=== PATIENT | female | born 1980 | race Caucasian/White ===

== ENCOUNTER → 2016-04-04 | Outpatient (CLI) | payer BC ==
[~2016-04-04] MED LIST: CLARITIN,ALAVAR10 MG PO; LEVO-T50 MCG PO; NOHOMEMEDS; PRENATAL TABLE1 EAC3 PO; VICODIN 5-3001 EACH PO
[2016-04-04 09:18] VITALS: BP 114/75
== END | disposition home or self-care (01) ==
LOC: IVINF 09:00
DX: O36.0920 Maternal care for other rhesus isoimmunization, second trimester, not applicable or unspecified (principal); Z3A.24 24 weeks gestation of pregnancy
CPT/HCPCS: 96372; J2790

== ENCOUNTER 2016-06-20 07:43 | Inpatient (IN) | payer BC ==
[2016-06-20] VITALS (8 sets, daily range): BP systolic 123–148; BP diastolic 58–89
[~2016-06-20] VITALS: Ht 170.2 cm; Wt 118.3 kg
[~2016-06-20 07:43] MED LIST changes: +DIABETA1.25 MG PO; +TUMS500 MG PO; +ZYRTEC10 M3 PO
[2016-06-20 08:40] LABS: ANION GAP 11 MEQ/L (2-14); CHLORIDE 107 MEQ/L (99-109); POTASSIUM 4.4 MEQ/L (3.7-5.4); SAMPLE HEMOLYSIS CHECK 0; SAMPLE ICTERIC CHECK 0; SAMPLE LIPEMIA CHECK 0; SODIUM 140 MEQ/L (136-147)
[2016-06-20 08:45] LABS: GFR ESTIMATE (CALCULATED) > 59 mL/min/; GLUCOSE 81 mg/dL (70-99); UREA NITROGEN (BUN) 14 mg/dL (9-23)
[2016-06-20] MEDS ORDERED: ENDOCET 5-3251 EACH PO (10:20)
[2016-06-20] MEDS ORDERED: IBUPROFEN800 MG PO (10:20)
[2016-06-20 11:03] LABS: POINT-OF-CARE METER ID UU13113675
[2016-06-20 17:41] LABS: POINT-OF-CARE METER ID UU14188576
[2016-06-21 03:01] VITALS: BP 139/69
[2016-06-21 06:47] LABS: POINT-OF-CARE METER ID UU14188576
[2016-06-21 07:25] LABS: EOSINOPHIL (%) 0.3 % (0-5); HEMATOCRIT 31.7 % (36.0-46.0); IMMATURE GRANULOCYTE (%) 0.5 % (0.0-0.7); IMMATURE GRANULOCYTE COUNT 0.1 K/uL; INSTRUMENT ABS NEUTROPHIL CT 9.1 K/uL; LYMPHOCYTE COUNT 3.2 K/uL (1.0-2.8); MCHC 33.4 G/DL (30.0-36.0); MCV 89.8 FL (83-99); MEAN PLAT.VOLUME 11.7 uM^3 (9.5-12.4); MONOCYTE COUNT 0.7 K/uL (0-0.8); NEUTROPHIL (%) 69.8 % (45-76); NEUTROPHIL COUNT 9.1 K/uL (1.8-6.4); PLATELET COUNT 151 K/uL (156-360); RBC DIS.WIDTH-CV 13.5 % (11.8-14.6); RBC DIS.WIDTH-SD 44.2 % (39-53)
[2016-06-21 07:29] LABS: RED BLOOD COUNT 3.53 M/uL (3.80-5.20)
[2016-06-21 09:14] VITALS: BP 131/80
[2016-06-21 10:39] VITALS: BP 136/81
[2016-06-21 15:25] VITALS: BP 136/71
[2016-06-21 20:00] VITALS: BP 151/81
[2016-06-21 23:16] VITALS: BP 138/71
[2016-06-22 03:30] VITALS: BP 139/92
[2016-06-22 07:15] LABS: POINT-OF-CARE METER ID UU13113692
[2016-06-22 07:28] VITALS: BP 139/89
[2016-06-22 15:17] VITALS: BP 138/69
[2016-06-22 22:46] VITALS: BP 136/60
[2016-06-23 07:19] VITALS: BP 135/72
== END 2016-06-23 14:36 | disposition home or self-care (01) | DRG 766 ==
LOC: 2WEST 07:43 → 2SOUTH 09:25 → 2WEST 06-23 14:36
PROVIDERS: Obstetrics & Gynecology
PROC: 10D00Z1 Extraction of Products of Conception, Low, Open Approach (ICD-10-PCS; principal; 2016-06-20)
DX: O64.8XX0 Obstructed labor due to other malposition and malpresentation, not applicable or unspecified (principal); O36.0930 Maternal care for other rhesus isoimmunization, third trimester, not applicable or unspecified; Z3A.39 39 weeks gestation of pregnancy; Z37.0 Single live birth; E66.01 Morbid (severe) obesity due to excess calories; O24.425 Gestational diabetes mellitus in childbirth, controlled by oral hypoglycemic drugs; O09.523 Supervision of elderly multigravida, third trimester; O99.824 Streptococcus B carrier state complicating childbirth; O99.284 Endocrine, nutritional and metabolic diseases complicating childbirth; E03.9 Hypothyroidism, unspecified; Z68.33 Body mass index [BMI] 33.0-33.9, adult; E88.09 Other disorders of plasma-protein metabolism, not elsewhere classified; O69.81X0 Labor and delivery complicated by cord around neck, without compression, not applicable or unspecified
CPT/HCPCS: 36415; 80048; 82948; 85025; 86870; 86900; 86901; 86920; 86999; 93005; J0690; J1100; J2274; J2405; J7120

== ENCOUNTER → 2017-02-26 | Outpatient (CLI) | payer BC ==
[~2017-02-26] VITALS: Ht 170.2 cm; Wt 109.0 kg
[~2017-02-26] MED LIST changes: +ENDOCET 5-3251 EACH PO; +IBUPROFEN800 MG PO
[2017-02-26 11:30] VITALS: BP 135/82
== END | disposition home or self-care (01) ==
LOC: IVINF 11:00
DX: Z31.82 Encounter for Rh incompatibility status (principal); Z3A.28 28 weeks gestation of pregnancy; Z67.41 Type O blood, Rh negative
CPT/HCPCS: 96372; J2790

== ENCOUNTER → 2017-06-11 | Outpatient (CLI) | payer BC ==
[~2017-06-11] VITALS: Ht 170.2 cm; Wt 112.0 kg
[2017-06-11 09:28] VITALS: BP 134/65
== END | disposition home or self-care (01) ==
LOC: IVINF 09:20
DX: Z31.82 Encounter for Rh incompatibility status (principal)
CPT/HCPCS: 96372; J2790